=== PATIENT | male | born 1995 | race Hispanic/Latino ===

== ENCOUNTER 2021-10-01 05:49 | Emergency (ER) | payer SELFPAY ==
[2021-10-01] MEDS ORDERED: Lidocaine Viscous Sol 2% 15 ml UD Cup ONE (06:13)
== END 2021-10-01 06:50 | disposition home or self-care (01) ==
LOC: ERS 05:49
DX: T16.1XXA Foreign body in right ear, initial encounter (principal)
CPT/HCPCS: 69200